=== PATIENT | male | born 1975 | race Hispanic/Latino ===

== ENCOUNTER 2018-07-05 08:21 | Emergency (ER) | payer OTHER ==
[2018-07-05] MEDS ORDERED: KETOROLAC TROMETHAMINE 60 MG/2 ML VIAL ONE (08:49)
== END 2018-07-05 09:21 | disposition home or self-care (01) ==
LOC: EDH 08:21
DX: S39.012A Strain of muscle, fascia and tendon of lower back, initial encounter (principal); Z72.0 Tobacco use; X58.XXXA Exposure to other specified factors, initial encounter; Y93.89 Activity, other specified; Y92.89 Other specified places as the place of occurrence of the external cause; Y99.8 Other external cause status
CPT/HCPCS: 96372; 99283; J1885

== ENCOUNTER 2019-07-12 03:08 | Emergency (ER) | payer OTHER | END 2019-07-12 03:30 | LOC: EDH 03:08 | DX: Z02.83 Encounter for blood-alcohol and blood-drug test (principal); Z72.0 Tobacco use | CPT/HCPCS: 36415 ==